=== PATIENT | female | born 1985 | race Caucasian/White ===

== ENCOUNTER 2017-01-09 15:11 | Emergency (ER) | payer OTHER ==
[~2017-01-09] VITALS: Ht 162.6 cm; Wt 58.1 kg
[2017-01-09 15:12] VITALS: BP 116/71
[2017-01-09] MEDS ORDERED: SODIUM CHLORIDE 0.9% 1,000ML IVBOLUS ONE (15:30)
[2017-01-09 16:06] LABS: HEMATOCRIT 38.1 % (34.6-47.8); HEMOGLOBIN 13.1 g/dL (11.7-16.4); WHITE BLOOD COUNT 7.2 x10^3/uL (3.4-10)
[2017-01-09 16:15] LABS: BLOOD UREA NITROGEN 16 mg/dL (7-18)
[2017-01-09 16:32] LABS: ASPARTATE AMINO TRANSFERASE 20 U/L (15-37)
== END 2017-01-09 18:16 | disposition home or self-care (01) ==
LOC: ED 17:30
DX: O46.91 Antepartum hemorrhage, unspecified, first trimester (principal); Z3A.01 Less than 8 weeks gestation of pregnancy; Z88.0 Allergy status to penicillin
CPT/HCPCS: 36415; 76801; 80053; 84702; 85025; 86901; 99285